=== PATIENT | female | born 1980 | race Caucasian/White ===

== ENCOUNTER 2021-01-15 16:55 | Emergency (ER) | payer MEDICARE, SELFPAY ==
[2021-01-15 17:19] VITALS: BP 113/84; PULSE 155; RESP 40; TEMP 36.7; O2SAT 40; BMI 19.8
--- NOTE | 2021-01-15 17:22 | XRR_ITS ---
PROCEDURE INFORMATION: Exam: XR Chest Exam date and time: 01/15/2021 5:22 PM Age: 40 years old Clinical indication: Shortness of breath; Additional info: Resp distress TECHNIQUE: Imaging protocol: XR of the chest. Views: 1 view. COMPARISON: No relevant prior studies available. FINDINGS: Lungs: Decreased lung volumes. Diffusely increased interstitial lung markings. Pleural spaces: Unremarkable. No pleural effusion. No pneumothorax. Heart/Mediastinum: Cardiac enlargement. Bones/joints: Demineralized bones. Leftward convex mid lumbar spine scoliosis. Gastrointestinal tract: Bowel loops are distended diffusely throughout abdomen and pelvis. Other findings: Extensive fecal volume. Lucency below the right diaphragm nonspecific. XR/XR chest 1V portable [id number] IMPRESSION: 1. Prominent coarsened interstitial lung markings diffusely. Interstitial edema or pneumonia not excluded. 2. Distended bowel loops with large fecal volume. 3. Configuration of lucency under the right diaphragm is nonspecific. Most likely distended bowel loops but pneumoperitoneum is not confidently excluded. Would recommend characterization with an additional radiographic views.
[2021-01-15] MEDS: rocuronium 10 mg/mL INJ 5mL 50 MG IV (17:50)
--- NOTE | 2021-01-15 17:57 | XRR_ITS ---
PROCEDURE INFORMATION: Exam: XR Chest Exam date and time: 01/15/2021 5:57 PM Age: 40 years old Clinical indication: Device placement; Ett placement (vent status); Additional info: Post intubation TECHNIQUE: Imaging protocol: XR of the chest. Views: 1 view. COMPARISON: CR (CHEST, ) 01/15/2021 5:26 PM FINDINGS: Tubes, catheters and devices: Mid trachea positioning of endotracheal tube. Lungs: Diffusely increased interstitial opacities. Pleural spaces: Unremarkable. No pleural effusion. No pneumothorax. Heart/Mediastinum: Cardiac enlargement. Bones/joints: Demineralized bones. Leftward convex lower lumbar spine scoliosis. Gastrointestinal tract: Gas-filled distended bowel loops throughout abdomen and pelvis. Other findings: Large fecal volume. Lucency below right diaphragm nonspecific. XR/XR chest 1V portable [id number] IMPRESSION: 1. Satisfactory endotracheal tube position. 2. Most likely aerated bowel loops below right diaphragm. No convincing evidence this represents pneumoperitoneum but difficult to exclude on the view provided.
[2021-01-15] MEDS: propofol 1,000 MG/100 ML INJ 1.12 MG IV (18:04)
[2021-01-15] MEDS: sodium chloride 0.9% 1,000 ML 999 ML IV (18:05)
[2021-01-15 18:06] VITALS: BP 110/74; PULSE 145; RESP 37; O2SAT 95
--- NOTE | 2021-01-15 18:15 | ANES.PROC ---
Anesthesia Procedures Procedure/Date: 01/15/21 Intubation: Time Out Performed: Yes Consent: requested by attending/covering physician and risks and benefits reviewed Sedative (amount): etomidate (6mg) Paralytic (amount): rocuronium (50mg) Laryngoscope: Sandra (3.5) ET Tube Size: 7 ET Tube Uncuffed: Yes Tube Secured Depth (cm): 21 Tube Secured Location: teeth Tube Placement Confirmation: visualized tube passing through cords, equal breath sounds bilaterally and confirmation by capnometry Patient Tolerated Procedure: well Intubation Complications: none Additional Comments: DLX1, grade 1, moderate amount of thick white secretions around vocal cords and emanating from trachea.
[2021-01-15] MEDS: ondansetron 2 mg/ML SDV 2 mL 4 MG IVP (18:17)
[2021-01-15 18:28] VITALS: RESP 20
--- NOTE | 2021-01-15 19:14 | XRR_ITS ---
PROCEDURE INFORMATION: Exam: XR Abdomen Exam date and time: 01/15/2021 7:14 PM Age: 40 years old Clinical indication: Device placement; Vascular catheter; Patient HX: R groin central line placement; Additional info: Post left inguinal line placement TECHNIQUE: Imaging protocol: XR of the abdomen. Views: Frontal supine view of the abdomen. 1 View. COMPARISON: CR (CHEST, ) 01/15/2021 5:53 PM FINDINGS: Tubes, catheters and devices: Left groin central venous catheter. The distal tip is terminating near the expected region of the left common iliac vein. Gastrointestinal tract: Diffuse distention of bowel loops. Bones/joints: Demineralized bones. Surgical changes in the hips. Other findings: Massive fecal volume. XR/XR KUB portable [id number] IMPRESSION: Satisfactory central venous catheter placement in the left groin.
[2021-01-15 19:20] LABS: Basophils # 0.1 10^3/uL (0.0-0.1); Basophils % 0.9 %; Eosinophils # 0.1 10^3/uL (0.0-0.8); Eosinophils % 0.6 %; Hematocrit 43.9 % (37.0-47.0); Hemoglobin 13.7 g/dL (11.5-15.3); Lymphocytes # 1.1 10^3/uL (0.8-4.8); Lymphocytes % 6.7 %; Mean Corpuscular HGB Conc 31.2 g/dL (30.0-36.0); Mean Corpuscular Hemoglobin 29.9 pg (28.0-34.0); Mean Corpuscular Volume 95.9 fL (81-99); Mean Platelet Volume 13.2 fL (7.4-10.4); Monocytes # 1.6 10^3/uL (0.2-0.9); Neutrophils # 13.04 10^3/uL (1.8-7.7); Neutrophils % 81.6 %; Nucleated Red Blood Cells % 0 %; Platelet Count 159 10^3/cmm (130-400); Red Blood Count 4.58 10^6/uL (4.1-5.3); Red Cell Distribution Width 13.2 % (12.1-15.1)
[2021-01-15 19:55] LABS: HCG, Serum Qual Negative (Negative)
[2021-01-15 20:00] LABS: Troponin(5th) Baseline 73 ng/L (0-10)
[2021-01-15 20:02] LABS: Lactic Sepsis W/Reflex 1.7 mmol/L (0.5-2.2)
--- NOTE | 2021-01-15 20:05 | CTR_ITS ---
PROCEDURE INFORMATION: Exam: CT Head Without Contrast Exam date and time: 01/15/2021 8:05 PM Age: 40 years old Clinical indication: Alteration of consciousness; Somnolence (drowsiness); Patient HX: AMS HX of cp; Additional info: Altered TECHNIQUE: Imaging protocol: Computed tomography of the head without contrast. Radiation optimization: All CT scans at this facility use at least one of these dose optimization techniques: automated exposure control; mA and/or kV adjustment per patient size (includes targeted exams where dose is matched to clinical indication); or iterative reconstruction. COMPARISON: No relevant prior studies available. RADIATION DOSE METRICS: Total DLP (mGy-cm): 1005.02 FINDINGS: Brain: Extensive atrophy of the brain parenchyma. Negative for intracranial hemorrhage. Negative for intracranial mass. No midline shift of the remaining brain tissue. Cerebral ventricles: Massive ventriculomegaly secondary to the cerebral atrophy. Paranasal sinuses: Extensive paranasal sinus opacities bilaterally. Mastoid air cells: Visualized mastoid air cells are well aerated. Orbital cavity: Symmetric orbits. Bones/joints: Unremarkable. No acute fracture. Soft tissues: Unremarkable. CT/CT head wo con* [id number] IMPRESSION: Negative for acute intracranial abnormality. Radiation Dose CTDIVOL = (mGy): DLP = 1005.02 (mGy-cm)
--- NOTE | 2021-01-15 20:06 | CTR_ITS ---
PROCEDURE INFORMATION: Exam: CT Chest With Contrast; Diagnostic Exam date and time: 01/15/2021 8:06 PM Age: 40 years old Clinical indication: Bloating; Shortness of breath; Prior surgery; Surgery date: 6+ months; Patient HX: Abd distention and SOB - HX of cp - et, og, peg tube and groin central line in place; Additional info: Pe? , Sbo? Free air? ? TECHNIQUE: Imaging protocol: Diagnostic computed tomography of the chest with contrast. Radiation optimization: All CT scans at this facility use at least one of these dose optimization techniques: automated exposure control; mA and/or kV adjustment per patient size (includes targeted exams where dose is matched to clinical indication); or iterative reconstruction. Contrast material: OMNI 300; Contrast volume: 80 ml; Contrast route: INTRAVENOUS (IV); COMPARISON: CR (CHEST, ) 01/15/2021 5:53 PM RADIATION DOSE METRICS: Total DLP (mGy-cm): 809.21 FINDINGS: Tubes, catheters and devices: Unremarkable mid trachea positioning of the endotracheal tube. Lungs: Volume loss changes in the lower lobes. Cannot exclude lower lobe airspace consolidation. Pleural spaces: No pleural effusion. No pneumothorax. Heart: Unremarkable. No cardiomegaly. No pericardial effusion. Aorta: Unremarkable. No aortic aneurysm. Lymph nodes: Unremarkable. No enlarged lymph nodes. Bones/joints: Exaggerated thoracic kyphosis. Negative for acute thoracic fracture. Soft tissues: Unremarkable. IMPRESSION: Bilateral lower lobe airspace opacities with volume loss. Atelectasis changes. Con current pneumonia cannot be excluded, in particular the left lower lobe. PROCEDURE INFORMATION: Exam: CT Abdomen And Pelvis With Contrast Exam date and time: 01/15/2021 8:06 PM Age: 40 years old Clinical indication: Bloating; Shortness of breath; Prior surgery; Surgery date: 6+ months; Patient HX: Abd distention and SOB - HX of cp - et, og, peg tube and groin central line in place; Additional info: Pe? , Sbo? Free air? ? TECHNIQUE: Imaging protocol: Computed tomography of the abdomen and pelvis with contrast. Radiation optimization: All CT scans at this facility use at least one of these dose optimization techniques: automated exposure control; mA and/or kV adjustment per patient size (includes targeted exams where dose is matched to clinical indication); or iterative reconstruction. Contrast material: OMNI 300; Contrast volume: 80 ml; Contrast route: INTRAVENOUS (IV); COMPARISON: CR (CHEST, ) 01/15/2021 5:53 PM RADIATION DOSE METRICS: Total DLP (mGy-cm): 809.21 FINDINGS: Tubes, catheters and devices: Gastrostomy catheter in the stomach in good position. Central venous catheter in the proximal left femoral vein terminates in the proximal left external iliac vein area. Liver: Normal. No mass. Gallbladder and bile ducts: Cholelithiasis. No inflammatory gallbladder wall thickening. Negative for biliary dilation. Pancreas: Normal. No ductal dilation. Spleen: Normal. No splenomegaly. Adrenal glands: Normal. No mass. Kidneys and ureters: Small nonobstructing right-sided kidney stones. The right-sided collecting system is dilated. Massive stones are present in the right mid ureter. Two separate stones are present. The largest stone is the more distal stone and measures 2.5 cm craniocaudad length by 2.2 cm transverse. There is no acute perinephric inflammation. Stomach and bowel: Small bowel loops are nondilated. The large bowel is distended with fecal material and gas. The rectum is massively distended with the large stool ball. The rectal diameter is at least 12.8 cm AP. The right colon is position under the diaphragm. Appendix: Not clearly seen. Intraperitoneal space: Negative for pneumoperitoneum. No loculated intraperitoneal fluid collection. Vasculature: Mesenteric vasculature is patent unremarkable. Lymph nodes: Unremarkable. No enlarged lymph nodes. Urinary bladder: Morrell catheter in place. Bladder is decompressed. Reproductive: Unremarkable as visualized. Bones/joints: Bones are demineralized. Reverse C-shaped leftward convex lumbar spine scoliosis. No acute fractures. No lytic bone lesion. Soft tissues: Surgical changes of the proximal femurs. CT/CT chest abd pel w con* IMPRESSION: 1. Massive stones in the right ureter. Likely chronic finding. Mild dilation of the collecting system proximal to the stones. 2. No renal inflammatory changes. 3. Massive fecal impaction of the rectum. Radiation Dose CTDIVOL = (mGy): DLP = 809.21~809.21 (mGy-cm)
[2021-01-15 20:09] LABS: Alanine Aminotransferase 51 U/L (0-33); Albumin Level 3.6 g/dL (3.5-5.2); Alkaline Phosphatase 187 IU/L (35-105); Anion Gap 17.4 (5-19); Aspartate Amino Transferase 58 U/L (0-32); Blood Urea Nitrogen 44 mg/dL (6-20); Calcium 8.6 mg/dL (8.5-10.5); Carbon Dioxide 29 mmol/L (22-29); Chloride 103 mmol/L (98-107); Creatine Phosphokinase 45 U/L (26-192); Glomerular Filtration Rate 137.4 mL/min (90-130); Glucose 176 mg/dL (65-115); NT Pro B Type Natriuretic Pept 9531 pg/mL (0-125); Osmolality Calculated 315 mOsm/kg (285-295); Potassium 4.4 mmol/L (3.5-5.1); Sodium 145 mmol/L (136-145); Thyroid Stimulating Hormone 1.67 uIU/mL (0.27-4.20); Total Bilirubin 0.4 mg/dL (0.15-1.2); Total Protein 7.6 g/dL (6.6-8.7)
[2021-01-15 20:16] LABS: INR 1.21 (0.8-1.2)
[2021-01-15 20:18] LABS: D Dimer 2.93 ug/mIFEU (0-0.59)
--- NOTE | 2021-01-15 20:30 | PC.PHAR ---
Pharmacokinetic dosing service Date: 01/15/21 Time: 2030 Objective: Patient: Susan Kaur Floor: ed Age: 40 yo Serum creatinine: 0.5 mg/dL Height: 54.0 Inches Weight (kg): 37.195 Diagnosis: Relevant medical/social history: Cultures and sensitivities: Other labs: Assessment: IBW (kg): 40.95 Dosing wt(kg): 37.195 Estimated Creatinine clearance (ml/min): 88.7 CRCL method: Cockcroft and Gault using ibw(default). Drug selected: Vancomycin Loading dose (mg): 0 Vd (liters): 33.5 (factor used: 0.9 L/kg) Christos (hr-1): 0.078 Half life (hrs): 8.89 Recommended dose: 500 mg Interval: 12 hrs Infusion time (hrs): 1.5 Predicted peak (mcg/mL): 23.2 Predicted trough (mcg/mL): 10.23 Total body weight is being used for vancomycin dosing. Renal function is stable [ ] /unstable [ ] Recommendations: Give Vancomycin 500 mg q 12 hrs with an expected Cpeak of 23.2 mcg/ml and an expected Ctrough of 10.23 mcg/ml Renal dosing of other antibiotics (review renal dosing of other medications and list guidelines here): Thank you for the consult, will continue to follow. Signature: Catrachita Ewing [facility]
[2021-01-15 20:35] LABS: Blood Gas Allen Test Pos; Blood Gas Sample Type Arterial
[2021-01-15 20:38] LABS: ABG PCO2 49.2 mmHg (35-45); Arterial Blood Gas Hematocrit 40.1 % (37-47); Base Excess ABG 4.2 mmol/L (-2.0-2.0); Blood Gas Sample Site Brachial, left; Carboxyhemoglobin 0.5 %THgb (0.4-20.1); HCO3 ABG 30.1 mmol/L (22-26); HGB O2 Sat 99.9 % (95-100); Methemoglobin < 0.0 % (0.4-1.5); Oxygen Device VENT; Total Hemoglobin 13.1 g/dL (12-16)
[2021-01-15 20:43] VITALS: RESP 20
[2021-01-15 20:49] LABS: SARS Covid-2 Antigen Negative (Negative)
[2021-01-15 21:45] VITALS: BP 104/63; PULSE 90; RESP 23; O2SAT 100
[2021-01-15 21:47] LABS: Protein Urine 2+ (Negative); Specific Gravity, Urine 1.015 (1.005-1.030); Urine Appearance SL Hazy (CLEAR); Urine Color Yellow (Yellow); pH Urine 5 (5-7)
[2021-01-15 21:48] LABS: Add Urine Microscopic? YES; Bilirubin Urine Neg (Negative); Blood Urine 3+ (Negative); Glucose Urine UA 4+ (Normal); Ketones Urine Negative (Negative); Leukocyte Esterase Urine 2+ (Negative); Nitrate Urine Negative (Negative); Urobilinogen Urine 1 mg/dL (Negative)
[2021-01-15 21:53] LABS: Add Urine Culture? Yes; Bacteria Urine 4+ /hpf; Squamous Epithelial Cell Urine 0-4 /hpf (0-5); WBC Urine 80-100 /hpf (0-5)
[2021-01-15] MEDS: iohexol 300 mg/mL 100 mL Btl 80 ML IV (21:59)
[2021-01-15] MEDS: piperacillin-tazobactam 3.375 GM in sodium chloride 0.9% (plus) 100 ML IV (22:14)
[2021-01-15] MEDS: vancomycin 500 MG in sodium chloride 0.9% (plus) 100 ML 200 MG IV (22:14)
--- NOTE | 2021-01-15 22:35 | W.ED.SOB ---
HPI - SOB/Dyspnea General: Chief Complaint: Shortness of Breath/Dyspnea Stated Complaint: SOB Time Seen by Provider: 01/15/21 17:19 History of Present Illness: HPI Narrative: The patient is a 40-year-old female with severe cerebral palsy who was brought to the ER by her mother satting 40% on room air and respiratory distress. She was placed on 100% oxygen and a BiPAP. 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 Warts she is not been feeling well since last night. Also reports 2 days ago she stopped short in her car and the child's car seat was not locked in and she fell out of it. She behaved fine the rest of that day and then last night became short of breath. MD elicited complaint: shortness of breath Severity: severe Review of Systems General: Reports: ROS unobtainable due to medical condition and ROS unobtainable due to mental status Physical Exam Narrative: EXAM NARRATIVE: Severe respiratory distress breathing shallow, tachypneic, satting 40% on room air. Briefly placed on BiPAP and then intubated. Lung sounds severely reduced and rhonchi and wheezing throughout. Baseline limited mental function with severe severe cerebral palsy. 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 Const: GENERAL APPEARANCE: in distress and ill appearing HENMT: COMMON NORMALS: normocephalic, external ears normal and Normal external nose present HEAD & SCALP: normal to inspection and normocephalic NOSE: Normal external nose present EXTERNAL EAR: Yes external ears normal MOUTH: Normal oral and palatal mucosa present THROAT: posterior oropharynx normal Eye: COMMON NORMALS: Equal, round and reactive pupils present and EOMs intact bilaterally GENERAL EYE: appearance normal, both eyes and all related structures PUPIL: Yes Equal, round and reactive pupils present Neck/C-Spine: COMMON NORMALS: full ROM, no lymphadenopathy and no JVD GENERAL: Yes normal visual inspection Lymph: LYMPHATIC: no lymphadenopathy noted Chest: COMMONS NORMALS: normal inspection of the chest and normal palpation of entire chest wall Resp: EFFORT & INSPECTION: Yes tachypneic, Yes respiratory distress (severe), Yes labored, Yes Actively coughing, Yes uses accessory muscles and Yes paradoxical thoraco-abdominal movements AUSCULTATION: rhonchi, wheezes and diminished lung sounds (severe) bilateral and diffuse Cardio: COMMON NORMALS: no JVD, regular rhythm, S1 normal heart sound present and S2 normal heart sound present RATE: tachycardic RHYTHM: regular rhythm HEART SOUNDS: S1 normal heart sound present and S2 normal heart sound present GI: COMMON NORMALS: Normal to inspection, nondistended, normoactive bowel sounds present, Soft to palpation, non-tender and no masses INSPECTION: Yes normal to inspection PALPATION: Yes Soft to palpation : COMMON NORMALS: Yes no CVA tenderness BLADDER/KIDNEY EXAM: Yes no CVA tenderness Back/Pelvis: COMMON NORMALS: no CVA tenderness, thoracic and lumbar spine normal to inspection, no thoracic nor lumbar tenderness and thoraco-lumbar ROM normal Extremity: COMMON NORMALS: normal to inspection, capillary refill normal, no joint enlargement and no pedal edema NARRATIVE EXTREMITY EXAM: Chronically contractured from her cerebral palsy history GENERAL: Yes normal exam except as noted Neuro: GOGO COMA SCALE: document GCS findings [place] coma scale eye opening: Spontaneous G[place] coma scale verbal response: Sounds [place] coma scale motor response: Localising [place] coma scale total score: 11 Skin: COMMON NORMALS: no rashes or lesions noted GENERAL SKIN EXAM: no rashes or lesions noted Course Vital Signs: Vital signs: Vital Signs Temperature 98.0 F 01/15/21 17:19 Pulse Rate 90 01/15/21 21:45 Respiratory Rate 23 H 01/15/21 21:45 Blood Pressure 104/63 01/15/21 21:45 Pulse Oximetry 100 01/15/21 21:45 MDM - SOB/Dyspnea MDM Narrative: Medical decision making narrative: This is an unfortunate case. The patient is a 40-year-old female with severe cerebral palsy chronically. Mother brought her to the ER today and says she has been short of breath since last night. The patient arrived saturating 40% on room air and in respiratory distress. Was briefly placed on nonrebreather then BiPAP as she had a history of malignant hyperthermia with use of succinylcholine. She was sedated successfully and intubated by our anesthesiologist. She was started on a propofol drip and has tolerated it well. Her pressure has been stable on this drip at 5 mics per kilo per minute. Chest CT shows bilateral pneumonia. Abdominal pelvic CT shows massive fecal impaction and massive right ureteral stones 2 to 3 cm in diameter. Both of these appear to be chronic problems. The patient has been stable here. Called our hospitalist who refused because we do not have any ICU beds available. I have called several different hospitals and found an accepting hospital in [place]. Unable to fly helicopter fixed wing due to weather restrictions. Arranging ground transportation now. Discussed with Dr. Ray at that hospital who accepts to the ICU. Lab Data: Labs: Lab Results 01/15/21 01/15/21 01/15/21 Range/Units 19:08 19:08 19:08 WBC 16.0 H (4.0-10.0) 10^3/ uL RBC 4.58 (4.1-5.3) 10^6/u L Hgb 13.7 (11.5-15.3) g/dL Hct 43.9 (37.0-47.0) % MCV 95.9 (81-99) fL MCH 29.9 (28.0-34.0) pg MCHC 31.2 (30.0-36.0) g/dL RDW 13.2 (12.1-15.1) % Plt Count 159 (130-400) 10^3/c mm MPV 13.2 H (7.4-10.4) fL Neut % (Auto) 81.6 % Lymph % (Auto) 6.7 % Citrus % (Auto) 10.0 % Eos % (Auto) 0.6 % Baso % (Auto) 0.9 % Neut # (Auto) 13.04 H (1.8-7.7) 10^3/u L Lymph # (Auto) 1.1 (0.8-4.8) 10^3/u L Citrus # (Auto) 1.6 H (0.2-0.9) 10^3/u L Eos # (Auto) 0.1 (0.0-0.8) 10^3/u L Baso # (Auto) 0.1 (0.0-0.1) 10^3/u L Nucleated RBC % (a uto) 0 % Nucleated RBCs # 0.0 /100WBC PT 15.60 H (12.1-14.9) SECO NDS INR 1.21 H (0.8-1.2) D-Dimer 2.93 H (0-0.59) ug/mIFE U Specimen Type Sample Site ABG pH (7.35-7.45) ABG pCO2 (35-45) mmHg ABG pO2 (80.0-100.0) mmH g ABG HCO3 (22-26) mmol/L ABG Base Excess (-2.0-2.0) mmol/ L Graham Test Hematocrit (37-47) % Hgb O2 Saturation (95-100) % Carboxyhemoglobin (0.4-20.1) %THgb Methemoglobin (0.4-1.5) % Total Hemoglobin (12-16) g/dL O2 Delivery Device Mechanical Rate FiO2 % Tidal Volume PEEP cmH20 [employer] Wafers Etch Operator ID Sodium 145 (136-145) mmol/L Potassium 4.4 (3.5-5.1) mmol/L Chloride 103 (98-107) mmol/L Carbon Dioxide 29 (22-29) mmol/L Anion Gap 17.4 (5-19) BUN 44 H (6-20) mg/dL Creatinine 0.5 (0.5-0.9) mg/dL GFR Calculation 137.4 H (90-130) mL/min Glucose 176 H (65-115) mg/dL Calculated Osmolal ity 315 H (285-295) mOsm/k g Lactic Acid (0.5-2.2) mmol/L Calcium 8.6 (8.5-10.5) mg/dL Total Bilirubin 0.4 (0.15-1.2) mg/dL AST 58 H (0-32) U/L ALT 51 H (0-33) U/L Alkaline Phosphata se 187 H (35-105) IU/L Creatine Kinase 45 (26-192) U/L Troponin T Baselin e (0-10) ng/L Troponin T 120 Min k[place]uk (0-10) ng/L Delta Troponin T (0-10) ABS# NT-Pro-B Natriuret Pep 9531 H (0-125) pg/mL Total Protein 7.6 (6.6-8.7) g/dL Albumin 3.6 (3.5-5.2) g/dL Globulin 4.0 (1.3-4.6) g/dL TSH 1.67 (0.27-4.20) uIU/ mL HCG, Qual (Negative) Urine Color (Yellow) Urine Appearance (CLEAR) Urine pH (5-7) Ur Specific Gravit y (1.005-1.030) Urine Protein (Negative) Urine Glucose (UA) (Normal) Urine Ketones (Negative) Urine Blood (Negative) Urine Nitrate (Negative) Urine Bilirubin (Negative) Urine Urobilinogen (Negative) mg/dL Ur Leukocyte Erica ase (Negative) Urine RBC (0-2) /hpf Urine WBC (0-5) /hpf Ur Squamous Epith Cells (0-5) /hpf Amorphous Sediment Urine Bacteria (NONE) /hpf SARS-CoV-2 Ag (Rap id) (Negative) 01/15/21 01/15/21 01/15/21 Range/Units 19:08 19:08 19:08 WBC (4.0-10.0) 10^3/ uL RBC (4.1-5.3) 10^6/u L Hgb (11.5-15.3) g/dL Hct (37.0-47.0) % MCV (81-99) fL MCH (28.0-34.0) pg MCHC (30.0-36.0) g/dL RDW (12.1-15.1) % Plt Count (130-400) 10^3/c mm MPV (7.4-10.4) fL Neut % (Auto) % Lymph % (Auto) % Citrus % (Auto) % Eos % (Auto) % Baso % (Auto) % Neut # (Auto) (1.8-7.7) 10^3/u L Lymph # (Auto) (0.8-4.8) 10^3/u L Citrus # (Auto) (0.2-0.9) 10^3/u L Eos # (Auto) (0.0-0.8) 10^3/u L Baso # (Auto) (0.0-0.1) 10^3/u L Nucleated RBC % (a uto) % Nucleated RBCs # /100WBC PT (12.1-14.9) SECO NDS INR (0.8-1.2) D-Dimer (0-0.59) ug/mIFE U Specimen Type Sample Site ABG pH (7.35-7.45) ABG pCO2 (35-45) mmHg ABG pO2 (80.0-100.0) mmH g ABG HCO3 (22-26) mmol/L ABG Base Excess (-2.0-2.0) mmol/ L Graham Test Hematocrit (37-47) % Hgb O2 Saturation (95-100) % Carboxyhemoglobin (0.4-20.1) %THgb Methemoglobin (0.4-1.5) % Total Hemoglobin (12-16) g/dL O2 Delivery Device Mechanical Rate FiO2 % Tidal Volume PEEP cmH20 [employer] Wafers Etch Operator ID Sodium (136-145) mmol/L Potassium (3.5-5.1) mmol/L Chloride (98-107) mmol/L Carbon Dioxide (22-29) mmol/L Anion Gap (5-19) BUN (6-20) mg/dL Creatinine (0.5-0.9) mg/dL GFR Calculation (90-130) mL/min Glucose (65-115) mg/dL Calculated Osmolal ity (285-295) mOsm/k g Lactic Acid 1.7 (0.5-2.2) mmol/L Calcium (8.5-10.5) mg/dL Total Bilirubin (0.15-1.2) mg/dL AST (0-32) U/L ALT (0-33) U/L Alkaline Phosphata se (35-105) IU/L Creatine Kinase (26-192) U/L Troponin T Baselin e 73 H (0-10) ng/L Troponin T 120 Min [place] (0-10) ng/L Delta Troponin T (0-10) ABS# NT-Pro-B Natriuret Pep (0-125) pg/mL Total Protein (6.6-8.7) g/dL Albumin (3.5-5.2) g/dL Globulin (1.3-4.6) g/dL TSH (0.27-4.20) uIU/ mL HCG, Qual Negative (Negative) Urine Color (Yellow) Urine Appearance (CLEAR) Urine pH (5-7) Ur Specific Gravit y (1.005-1.030) Urine Protein (Negative) Urine Glucose (UA) (Normal) Urine Ketones (Negative) Urine Blood (Negative) Urine Nitrate (Negative) Urine Bilirubin (Negative) Urine Urobilinogen (Negative) mg/dL Ur Leukocyte Erica ase (Negative) Urine RBC (0-2) /hpf Urine WBC (0-5) /hpf Ur Squamous Epith Cells (0-5) /hpf Amorphous Sediment Urine Bacteria (NONE) /hpf SARS-CoV-2 Ag (Rap id) (Negative) 01/15/21 01/15/21 01/15/21 Range/Units 20:20 20:20 20:50 WBC (4.0-10.0) 10^3/ uL RBC (4.1-5.3) 10^6/u L Hgb (11.5-15.3) g/dL Hct (37.0-47.0) % MCV (81-99) fL MCH (28.0-34.0) pg MCHC (30.0-36.0) g/dL RDW (12.1-15.1) % Plt Count (130-400) 10^3/c mm MPV (7.4-10.4) fL Neut % (Auto) % Lymph % (Auto) % Citrus % (Auto) % Eos % (Auto) % Baso % (Auto) % Neut # (Auto) (1.8-7.7) 10^3/u L Lymph # (Auto) (0.8-4.8) 10^3/u L Citrus # (Auto) (0.2-0.9) 10^3/u L Eos # (Auto) (0.0-0.8) 10^3/u L Baso # (Auto) (0.0-0.1) 10^3/u L Nucleated RBC % (a uto) % Nucleated RBCs # /100WBC PT (12.1-14.9) SECO NDS INR (0.8-1.2) D-Dimer (0-0.59) ug/mIFE U Specimen Type Arterial Sample Site Brachial, left ABG pH 7.40 (7.35-7.45) ABG pCO2 49.2 H (35-45) mmHg ABG pO2 235.0 H (80.0-100.0) mmH g ABG HCO3 30.1 H (22-26) mmol/L ABG Base Excess 4.2 H (-2.0-2.0) mmol/ L Graham Test Pos Hematocrit 40.1 (37-47) % Hgb O2 Saturation 99.9 (95-100) % Carboxyhemoglobin 0.5 (0.4-20.1) %THgb Methemoglobin < 0.0 L (0.4-1.5) % Total Hemoglobin 13.1 (12-16) g/dL O2 Delivery Device Vent Mechanical Rate 20.0 FiO2 100.0 % Tidal Volume 0.20 PEEP 5.0 cmH20 [employer] Wafers Etch Operator ID [email or web address] Sodium (136-145) mmol/L Potassium (3.5-5.1) mmol/L Chloride (98-107) mmol/L Carbon Dioxide (22-29) mmol/L Anion Gap (5-19) BUN (6-20) mg/dL Creatinine (0.5-0.9) mg/dL GFR Calculation (90-130) mL/min Glucose (65-115) mg/dL Calculated Osmolal ity (285-295) mOsm/k g Lactic Acid (0.5-2.2) mmol/L Calcium (8.5-10.5) mg/dL Total Bilirubin (0.15-1.2) mg/dL AST (0-32) U/L ALT (0-33) U/L Alkaline Phosphata se (35-105) IU/L Creatine Kinase (26-192) U/L Troponin T Baselin e (0-10) ng/L Troponin T 120 Min [place] (0-10) ng/L Delta Troponin T (0-10) ABS# NT-Pro-B Natriuret Pep (0-125) pg/mL Total Protein (6.6-8.7) g/dL Albumin (3.5-5.2) g/dL Globulin (1.3-4.6) g/dL TSH (0.27-4.20) uIU/ mL HCG, Qual (Negative) Urine Color Yellow (Yellow) Urine Appearance Sl hazy (CLEAR) Urine pH 5 (5-7) Ur Specific Gravit y 1.015 (1.005-1.030) Urine Protein 2+ H (Negative) Urine Glucose (UA) 4+ H (Normal) Urine Ketones Negative (Negative) Urine Blood 3+ H (Negative) Urine Nitrate Negative (Negative) Urine Bilirubin Neg (Negative) Urine Urobilinogen 1 H (Negative) mg/dL Ur Leukocyte Erica ase 2+ H (Negative) Urine RBC 10-15 H (0-2) /hpf Urine WBC 80-100 H (0-5) /hpf Ur Squamous Epith Cells 0-4 H (0-5) /hpf Amorphous Sediment Not Reportable Urine Bacteria 4+ H (NONE) /hpf SARS-CoV-2 Ag (Rap id) Negative (Negative) 01/15/21 Range/Units 22:06 WBC (4.0-10.0) 10^3/ uL RBC (4.1-5.3) 10^6/u L Hgb (11.5-15.3) g/dL Hct (37.0-47.0) % MCV (81-99) fL MCH (28.0-34.0) pg MCHC (30.0-36.0) g/dL RDW (12.1-15.1) % Plt Count (130-400) 10^3/c mm MPV (7.4-10.4) fL Neut % (Auto) % Lymph % (Auto) % Citrus % (Auto) % Eos % (Auto) % Baso % (Auto) % Neut # (Auto) (1.8-7.7) 10^3/u L Lymph # (Auto) (0.8-4.8) 10^3/u L Citrus # (Auto) (0.2-0.9) 10^3/u L Eos # (Auto) (0.0-0.8) 10^3/u L Baso # (Auto) (0.0-0.1) 10^3/u L Nucleated RBC % (a uto) % Nucleated RBCs # /100WBC PT (12.1-14.9) SECO NDS INR (0.8-1.2) D-Dimer (0-0.59) ug/mIFE U Specimen Type Sample Site ABG pH (7.35-7.45) ABG pCO2 (35-45) mmHg ABG pO2 (80.0-100.0) mmH g ABG HCO3 (22-26) mmol/L ABG Base Excess (-2.0-2.0) mmol/ L Graham Test Hematocrit (37-47) % Hgb O2 Saturation (95-100) % Carboxyhemoglobin (0.4-20.1) %THgb Methemoglobin (0.4-1.5) % Total Hemoglobin (12-16) g/dL O2 Delivery Device Mechanical Rate FiO2 % Tidal Volume PEEP cmH20 [employer] Wafers Etch Operator ID Sodium (136-145) mmol/L Potassium (3.5-5.1) mmol/L Chloride (98-107) mmol/L Carbon Dioxide (22-29) mmol/L Anion Gap (5-19) BUN (6-20) mg/dL Creatinine (0.5-0.9) mg/dL GFR Calculation (90-130) mL/min Glucose (65-115) mg/dL Calculated Osmolal ity (285-295) mOsm/k g Lactic Acid (0.5-2.2) mmol/L Calcium (8.5-10.5) mg/dL Total Bilirubin (0.15-1.2) mg/dL AST (0-32) U/L ALT (0-33) U/L Alkaline Phosphata se (35-105) IU/L Creatine Kinase (26-192) U/L Troponin T Baselin e (0-10) ng/L Troponin T 120 Min [place] 48.15 H (0-10) ng/L Delta Troponin T -24.85 L (0-10) ABS# NT-Pro-B Natriuret Pep (0-125) pg/mL Total Protein (6.6-8.7) g/dL Albumin (3.5-5.2) g/dL Globulin (1.3-4.6) g/dL TSH (0.27-4.20) uIU/ mL HCG, Qual (Negative) Urine Color (Yellow) Urine Appearance (CLEAR) Urine pH (5-7) Ur Specific Gravit y (1.005-1.030) Urine Protein (Negative) Urine Glucose (UA) (Normal) Urine Ketones (Negative) Urine Blood (Negative) Urine Nitrate (Negative) Urine Bilirubin (Negative) Urine Urobilinogen (Negative) mg/dL Ur Leukocyte Erica ase (Negative) Urine RBC (0-2) /hpf Urine WBC (0-5) /hpf Ur Squamous Epith Cells (0-5) /hpf Amorphous Sediment Urine Bacteria (NONE) /hpf SARS-CoV-2 Ag (Rap id) (Negative) Discharge Plan Discharge Patient Disposition: Xfer Short-Term Hosp Clinical Impression: Acute respiratory failure, Bilateral pneumonia, Cerebral palsy, Urinary tract infection, Sepsis, Fecal impaction Condition: Stable Coding Level of Care Code ED [employer] Analyst for Chg Fwd Exam Comprehensive
[2021-01-15 22:52] LABS: Troponin 5 2HR 48.15 ng/L (0-10); Troponin 5 2HR Delta -24.85 ABS# (0-10)
[2021-01-16] MEDS: fentaNYL 50 mcg/mL INJ 2mL 100 MCG IVP (01:17)
[2021-01-16 01:45] VITALS: BP 96/65; PULSE 76; RESP 18; TEMP 37; O2SAT 98
== END 2021-01-16 01:49 | disposition short-term general hospital (02) ==
PROVIDERS: Emergency Provider Family Medicine
DX: A41.9 Sepsis, unspecified organism (principal); N39.0 Urinary tract infection, site not specified; J18.9 Pneumonia, unspecified organism; J96.00 Acute respiratory failure, unspecified whether with hypoxia or hypercapnia; G80.9 Cerebral palsy, unspecified; K56.41 Fecal impaction; Z20.822 Contact with and (suspected) exposure to COVID-19
CPT/HCPCS: 36415; 36600; 70450; 71045; 71260; 74018; 74177; 80053; 81001; 82550; 82805; 83605; 83880; 84443; 84484; 84703; 85025; 85378; 85610; 87040; 87070; 87077; 87086; 87186; 87205; 87426; 94799; 96365; 96366; 96367; 96368; 96375; 99291; J2405; J2543; J2704; J3010; J3490; J7030; Q9967